=== PATIENT | female | born 1985 | race Caucasian/White ===

== ENCOUNTER 2024-10-31 16:36 | Emergency (ER) | payer OTHER ==
[2024-10-31 16:44] VITALS: BP 132/75; PULSE 112; RESP 20; TEMP 99; BMI 27.9
[2024-10-31] MEDS ORDERED: ACETAMINOPHEN 500 MG TABLET (FP) ONE (17:45)
[2024-10-31] MEDS: ACETAMINOPHEN 500 MG TABLET (FP) PO ONE (17:47)
[2024-10-31 18:14] LABS: THROAT:GRP A STREP NOT DETECTED (NOTDETECTED)
== END 2024-10-31 19:21 | disposition home or self-care (01) ==
LOC: JERFT 16:36
DX: J10.1 Influenza due to other identified influenza virus with other respiratory manifestations (principal); R50.9 Fever, unspecified; R51.9 Headache, unspecified; R05.9 Cough, unspecified
CPT/HCPCS: 0241U-QW; 71046-TC-FY; 87651; 99284-25